=== PATIENT | male | born 1960 | race Caucasian/White ===

== ENCOUNTER 2016-08-19 02:44 | Inpatient (IN) | payer MEDICARE, OTHER ==
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
--- NOTE | ~2016-08-19 | DS ---
Discharge Summary [facility] [address] [facility] [place]. [address] NAME: NAMITA MI : 64 STATUS : ADM IN [facility]#: [id number] AGE: 55 ADM/REG DATE : 08/19/16 MR#: [id number] REPORT SERV DATE: 08/22/16 DICTATED BY: YEISON LUI DATE: 08/22/16 REPORT STATUS : Draft TRANSCRIBED BY: MODL DATE: 08/22/16 ADMISSION DATE: 08/19/2016 DISCHARGE DATE: 08/22/2016 FINAL HOSPITAL DIAGNOSES: 1. Chronic obstructive pulmonary disease. 2. Hypercapnic respiratory failure. 3. Narcotic dependence. 4. Possible seizure disorder. CONSULTATIONS: Pulmonary and Critical Care, Dr. Johnson. PROCEDURES: None. CURRENT PHYSICAL FINDINGS AND HISTORY OF PRESENT ILLNESS: Please see initial dictated H and P by Dr. Johnson. In brief, the patient is a 55-year-old male with above medical history, presented with encephalopathy, confusion, and hypercapnic respiratory failure. Partially responsive to Narcan, was placed in the ICU. Vital signs at time of admission, BP was 124/67, temperature was 98.8, he has been afebrile during his hospital stay. His average O2 requirements have been 4 L, which is his home baseline. LAB: Last blood gas was on 08/19/2016, pH 7.44, CO2 of 62, O2 of 102, bicarb 40, sat 97% on 60% FiO2. His CO2 had gotten as high as 92. Initial potassium was 3.4, this is corrected. He had a chronically elevated in the low 40 CO2. Renal function numbers were normal. Blood sugars were easily controlled with sliding scale despite his steroid use. Troponin was less than 0.02. Depakote level was 67. BNP was 1192. Initial ammonia level was 78, but repeat was 46. Lactate was 1.2. White count was 5.2. He has had no significant leukocytosis during his hospital stay. Urine drug screen was positive for opiates. Blood cultures are negative to this date. Chest x-ray done at the time of admission showed no infiltrate. Initial procalcitonin was 0.06 and repeated on the 08/20/2016, 0.08. HOSPITAL COURSE: Due to the patient's hypercarbia and obtundation and partial response to Narcan, it was felt best he initially presented to the ICU, which he did. He was started on IV fluids, nebulizer, steroids, antibiotics, and sliding scale insulin, electrolyte replacement protocol and BiPAP. On the 08/19/2016, he was given breaks off BiPAP and switched to p.r.n. h.s. and naps. He did also receive some IV fluids on 08/19/2016. Serial labs were followed on 08/20/2016. He was placed back on his Percocet 5 and orders for transfer to the Hospital Service. I assumed his care on 08/21/2016. His Tim was discontinued. He was requesting a muscle relaxer. His home medications were noted to contain multiple, but he was started on Flexeril. He was also continued on his Percocet and he was placed on Keppra as recommended by Neurology with his last hospitalization as it was felt the Depakote may be causing his elevated ammonia. When he was reassessed on 08/22/2016, he was ambulatory, he was back to his baseline O2 of 4 L. He was requesting to go home. Arrangements will be made for any home oxygen orders that he may need and follow up with his PCP. Discharge Summary [address] [address] NAME: NAMITA MI : 64 STATUS : ADM IN [facility]#: [id number] AGE: 55 ADM/REG DATE : 08/19/16 MR#: [id number] REPORT SERV DATE: 08/22/16 DICTATED BY: YEISON LUI DATE: 08/22/16 REPORT STATUS : Draft TRANSCRIBED BY: SAÚL DATE: 08/22/16 MEDICATIONS: New medications will be Levaquin 750 one per day and prednisone 20, 10 taper. He will resume his home medications Eliquis 5 b.i.d., aspirin 81, Coreg 12.5 b.i.d., Plavix 75, Neurontin 300 at bedtime, hydrochlorothiazide 25, lisinopril 2.5, Mevacor 40, Protonix 40, Flomax 0.4, trazodone 100, Symbicort 160/4.5 two puffs b.i.d., Ventolin inhaler, Ventolin nebulizer, Flexeril 10, DuoNeb, Silvadene, Glucophage 500 b.i.d., nitro 0.4, potassium. He is to follow up with his PCP and return p.r.n. recurrent symptoms. TLF/MODL Yeison Lui M.D. / [id number] CC: Yeison Lui M.D.
[2016-08-19 00:50] LABS: BE (BASE EXCESS) 12.2 MEQ/L (0 +/- 2.5); CARBOXYHEMOGLOBIN 7.3 % (0-3); DEVICE NC; HCO3 (ACTUAL BICARBONATE) 41.9 MEQ/L (23-27); HEMOBLOGIN CONTENT 12.6 G/DL (14-18); INSTRUMENT SERIAL # 8087; METHEMOGLOBIN 0.4 % (0-3); PCO2 (CO2 TENSION) 85 MMHG (35-45); PO2 (O2 TENSION) 94 MMHG (79-93); SAMPLE Arterial; pH 7.31 (7.37-7.43)
[2016-08-19 02:09] LABS: BASOPHILS 0.2 %; BASOPHILS ABSOLUTE 0.01 10/3/uL (0.0-0.16); EOSINOPHILS 2.5 %; EOSINOPHILS ABSOLUTE 0.13 10/3/uL (0.0-0.53); ER CBC TAT 0 Hrs 09 Mins; IMMATURE GRANULOCYTES 0.2 %; IMMATURE GRANULOCYTES ABSOLUTE 0.01 10/3/uL (0.0-0.11); LYMPHOCYTES 14.5 %; LYMPHOCYTES ABSOLUTE 0.75 10/3/uL (0.67-4.30); MEAN CORPUSCULAR HEMOGLOB 32.1 pg (26.0-34.0); MEAN CORPUSCULAR VOLUME 106.2 fL (80-100); MONOCYTES 3.9 %; NEUTROPHILS 78.7 %; NEUTROPHILS ABSOLUTE 4.08 10/3/uL (2.02-8.40); PLATELET COUNT 120 10/3/uL (150-400); RBC DISTRIBUTION WIDTH 16.2 % (12.0-16.0); WHITE BLOOD CELLS 5.2 10/3/uL (4.5-10.5)
[2016-08-19 02:10] LABS: HEMATOCRIT 39.4 % (40.0-51.0); HEMOGLOBIN 11.9 g/dL (13.6-17.8); MANUAL DIFF NO %; MEAN CORPUS HGB CONC 30.2 g/dL (32.0-36.0); RED CELL COUNT 3.71 10/6/uL (4.7-6.1)
[2016-08-19 02:16] LABS: INTERNATIONAL NORMAL RATI 1.8 UNITS (-); PARTIAL THROMBO TIME 38.3 SEC (22.5-37.2)
[2016-08-19 02:17] LABS: PROTIME (NOT ORD) 20.3 SEC (12.0-14.5)
[2016-08-19 02:34] LABS: ALBUMIN 2.9 G/DL (3.5-5.0); ALKALINE PHOSPHATASE 73 U/L (45-117); CALCIUM, SERUM 8.4 MG/DL (8.5-10.4); CHLORIDE, SERUM 96 MMOL/L (96-112); CO2 (CARBON DIOXIDE) 40 MMOL/L (24-34); GFR AFRICAN AMERICAN 125 ML/MIN (>=60); GFR NON AFRICAN AMERICAN 108 ML/MIN (>=60); GLUCOSE, SERUM 128 MG/DL (60-99); POTASSIUM, SERUM 3.4 MMOL/L (3.5-5.3); SGOT(AST) 12 U/L (5-40); SGPT(ALT) 13 U/L (5-65); SODIUM, SERUM 143 MMOL/L (135-148); TOTAL BILIRUBIN 0.7 MG/DL (0-1.2); TROPONIN I <0.02 NG/ML (<0.05)
[2016-08-19 02:36] LABS: BUN (BLOOD UREA NITROGEN) 14 MG/DL (6-23); DIRECT BILIRUBIN 0.3 MG/DL (0.0-0.4); INDIRECT BILIRUBIN(NOT ORDER) 0.4 MG/DL (0.1-0.9); TOTAL PROTEIN 7.8 G/DL (6.0-8.5)
[2016-08-19 02:37] LABS: CHEST PAIN PROFILE TAT 0 Hrs 31 Mins
[~2016-08-19 02:44] MED LIST: ACCUNEB INH; ADVAIR HFA INH; ADVAIR250 INH; ADVIL PO; ALBUTEROL; ASAB PO; ASABAYER PO; ASAEC PO; BACLOFEN20 MG PO; BACTROINT TOP; CAT1 PO; CLEOCIN300 MG PO; CONSTULOSE PO; COREG12 PO; DEP250 PO; DIVALPROEX 500 MG PO; DUONEB INH; ELIQUIS 5 MG TAB5 MG PO; FLOMAX4 PO; FORTAMET500 MG PO; GLUCOPHAGE1000 MG PO; GLUCPH PO; HALF81 PO; HYDROCHLOROT25 MG PO; HYDROCODONE; KLONO1 PO; KLOR-CON M1010 MEQ PO; L20 PO; LEVEMFLXPN SC; LEVEMIR SC; LISINOPRIL40 MG PO; LOP25 PO; LOP50 PO; LORTAB10 PO; MEVACOR40 MG PO; MICRO-K10 MEQ PO; NEUR300 PO; NICODERM C21 MG/241 TOP; NITROSTAT0.4 MG SL; NORCO1 TAB PO; NOVOLOG SC; NOVOPEN SC; NYS500UDL PO; OXYCOD PO; P20 PO; PB30 PO; PB60 PO; PERCOCET1 TA4 PO; PLAVIX PO; PRIN10 PO; PRIN2.5 PO; PROAIR HFA INH; PROTONIX PO; PROVENTSOL INH; PROVHFA INH; RISP1 PO; SYMBICORT 160/41 INH INH; TRAZ100 PO; VALPROIC ACID PO; VENTOLIN HFA INH; XANAX XR1 MG PO; XANAX1 MG PO; ZESTRIL2.5 MG PO; ZITHROMAX500 MG PO; ZOFRAN8 PO; ZOL100 PO; ZONEGRAN PO
[2016-08-19 03:12] LABS: DEPAKENE (VALPROIC ACID) 67.8 MCG/ML (50.0-100.0)
[2016-08-19 03:16] LABS: BE (BASE EXCESS) 16.3 MEQ/L (0 +/- 2.5); BIPAP 18/10 cm.H2O; CARBOXYHEMOGLOBIN 5.4 % (0-3); HCO3 (ACTUAL BICARBONATE) 46.7 MEQ/L (23-27); HEMOBLOGIN CONTENT 12.8 G/DL (14-18); INSTRUMENT SERIAL # 8087; METHEMOGLOBIN 0.4 % (0-3); O2 CONTENT 17.7 VOL% (18-24); PCO2 (CO2 TENSION) 92 MMHG (35-45); PO2 (O2 TENSION) 309 MMHG (79-93); SAMPLE Arterial; pH 7.33 (7.37-7.43)
[2016-08-19 03:32] LABS: LACTATE 1.2 MMOL/L (0.3-2.4)
[2016-08-19 04:41] LABS: PROCALCITONIN 0.06 ng/mL (<0.5)
[2016-08-19] MEDS ORDERED: UNABLE TO COMPLETE (04:42)
[2016-08-19 04:58] LABS: AMPHETAMINES (NOT ORD) NEG (NEG); BARBITURATES (NOT ORDERED NEG (NEG); BENZODIAZEPINES (NOT ORD) NEG (NEG); CANNABINOIDS (THC) NEG (NEG); COCAINE (NOT ORDERED) NEG (NEG); OPIATES POS (NEG); PHENCYCLIDINE(PCP) NEG (NEG); TRICYCLICS NEG (NEG)
[2016-08-19] MEDS ORDERED: PRIN2.5 PO (12:29)
[2016-08-19] MEDS ORDERED: VENTOLIN HFA INH (12:29)
[2016-08-19] MEDS ORDERED: COREG12 PO (12:30)
[2016-08-19] MEDS ORDERED: BACLOFEN20 MG PO (12:31)
[2016-08-19] MEDS ORDERED: ALBUTEROL0.083 % INH (12:31)
[2016-08-19] MEDS ORDERED: PR25 PO (12:32)
[2016-08-19] MEDS ORDERED: PLAVIX PO (12:33)
[2016-08-19] MEDS ORDERED: FLEX PO (12:33)
[2016-08-19] MEDS ORDERED: NEUR300 PO (12:34)
[2016-08-19] MEDS ORDERED: DUONEB INH (12:34)
[2016-08-19] MEDS ORDERED: SILVER SULFADIAZINE TOP (12:35)
[2016-08-19] MEDS ORDERED: GLUCPH PO (12:35)
[2016-08-19] MEDS ORDERED: NITROSTAT0.4 MG SL (12:36)
[2016-08-19] MEDS ORDERED: METHOC750B PO (12:36)
[2016-08-19] MEDS ORDERED: SYMBICORT 160/41 INH INH (12:37)
[2016-08-19] MEDS ORDERED: PROTONIX PO (12:37)
[2016-08-19] MEDS ORDERED: KLOR-CON 1010 MEQ PO (12:37)
[2016-08-19] MEDS ORDERED: FLOMAX4 PO (12:38)
[2016-08-19] MEDS ORDERED: TRAZ100 PO (12:38)
[2016-08-19] MEDS ORDERED: *UNABLE2 (12:40)
[2016-08-19 16:31] LABS: ALLENS TEST Pos; BE (BASE EXCESS) 14.3 MEQ/L (0 +/- 2.5); CARBOXYHEMOGLOBIN 1.7 % (0-3); DEVICE NC; HCO3 (ACTUAL BICARBONATE) 39.9 MEQ/L (23-27); HEMOBLOGIN CONTENT 12.1 G/DL (14-18); INSTRUMENT SERIAL # 35151; METHEMOGLOBIN 0.5 % (0-3); PCO2 (CO2 TENSION) 55 MMHG (35-45); PO2 (O2 TENSION) 84 MMHG (79-93); SAMPLE Arterial; pH 7.48 (7.37-7.43)
[2016-08-19 19:16] LABS: ALLENS TEST Pos; BE (BASE EXCESS) 14.1 MEQ/L (0 +/- 2.5); BIPAP 18/8 cm.H2O; HCO3 (ACTUAL BICARBONATE) 40.7 MEQ/L (23-27); HEMOBLOGIN CONTENT 11.4 G/DL (14-18); INSTRUMENT SERIAL # 35151; METHEMOGLOBIN 0.7 % (0-3); O2 CONTENT 15.5 VOL% (18-24); PCO2 (CO2 TENSION) 62 MMHG (35-45); PO2 (O2 TENSION) 101 MMHG (79-93); SAMPLE Arterial; pH 7.44 (7.37-7.43)
[2016-08-20 04:08] LABS: BASOPHILS 0 %; EOSINOPHILS 0 %; HEMATOCRIT 31.7 % (40.0-51.0); HEMOGLOBIN 9.9 g/dL (13.6-17.8); IMMATURE GRANULOCYTES 0.2 %; IMMATURE GRANULOCYTES ABSOLUTE 0.01 10/3/uL (0.0-0.11); LYMPHOCYTES 13.1 %; LYMPHOCYTES ABSOLUTE 0.79 10/3/uL (0.67-4.30); MANUAL DIFF NO %; MEAN CORPUS HGB CONC 31.2 g/dL (32.0-36.0); MEAN CORPUSCULAR HEMOGLOB 32.8 pg (26.0-34.0); MEAN PLATELET VOLUME 11.3 fL (9.2-13.0); MONOCYTES 11.6 %; NEUTROPHILS 75.1 %; NEUTROPHILS ABSOLUTE 4.54 10/3/uL (2.02-8.40); PLATELET COUNT 105 10/3/uL (150-400); RBC DISTRIBUTION WIDTH 16.5 % (12.0-16.0); RED CELL COUNT 3.02 10/6/uL (4.7-6.1)
[2016-08-20 04:30] LABS: CHLORIDE, SERUM 95 MMOL/L (96-112); CO2 (CARBON DIOXIDE) 40 MMOL/L (24-34); CREATININE 0.65 MG/DL (0.70-1.30); GFR AFRICAN AMERICAN 129 ML/MIN (>=60); GFR NON AFRICAN AMERICAN 111 ML/MIN (>=60); POTASSIUM, SERUM 3.3 MMOL/L (3.5-5.3); SODIUM, SERUM 141 MMOL/L (135-148)
[2016-08-20 04:33] LABS: BUN (BLOOD UREA NITROGEN) 20 MG/DL (6-23); GLUCOSE, SERUM 177 MG/DL (60-99)
[2016-08-20 06:31] LABS: PROCALCITONIN 0.08 ng/mL (<0.5)
[2016-08-20] MEDS ORDERED: ELIQUIS 5 MG TAB5 MG PO (13:05)
[2016-08-20] MEDS ORDERED: ASAB PO (13:06)
[2016-08-20] MEDS ORDERED: DEP250 PO (13:10)
[2016-08-20] MEDS ORDERED: MEVACOR40 MG PO (13:11)
[2016-08-20] MEDS ORDERED: HYDROCHLOROT25 MG PO (13:11)
[2016-08-20] MEDS ORDERED: LOP50 PO (13:11)
[2016-08-21 06:30] LABS: BASOPHILS 0 %; EOSINOPHILS 0 %; HEMATOCRIT 31.3 % (40.0-51.0); HEMOGLOBIN 10.2 g/dL (13.6-17.8); IMMATURE GRANULOCYTES 0.1 %; IMMATURE GRANULOCYTES ABSOLUTE 0.01 10/3/uL (0.0-0.11); LYMPHOCYTES 12.5 %; LYMPHOCYTES ABSOLUTE 0.85 10/3/uL (0.67-4.30); MEAN CORPUS HGB CONC 32.6 g/dL (32.0-36.0); MEAN PLATELET VOLUME 10.6 fL (9.2-13.0); MONOCYTES ABSOLUTE 0.54 10/3/uL (0.21-1.20); NEUTROPHILS 79.4 %; NEUTROPHILS ABSOLUTE 5.39 10/3/uL (2.02-8.40); PLATELET COUNT 110 10/3/uL (150-400); RBC DISTRIBUTION WIDTH 15.6 % (12.0-16.0); RED CELL COUNT 3.09 10/6/uL (4.7-6.1); WHITE BLOOD CELLS 6.8 10/3/uL (4.5-10.5)
[2016-08-21 06:33] LABS: MANUAL DIFF NO %; MEAN CORPUSCULAR VOLUME 101.3 fL (80-100)
[2016-08-21 06:39] LABS: CALCIUM, SERUM 8.3 MG/DL (8.5-10.4); CHLORIDE, SERUM 91 MMOL/L (96-112); GFR AFRICAN AMERICAN 133 ML/MIN (>=60); GFR NON AFRICAN AMERICAN 115 ML/MIN (>=60); GLUCOSE, SERUM 169 MG/DL (60-99); PHOSPHORUS, SERUM 2.6 MG/DL (2.5-4.5); POTASSIUM, SERUM 3.6 MMOL/L (3.5-5.3); SODIUM, SERUM 139 MMOL/L (135-148)
[2016-08-21 06:47] LABS: BUN (BLOOD UREA NITROGEN) 16 MG/DL (6-23); CO2 (CARBON DIOXIDE) 42 MMOL/L (24-34)
[2016-08-21] MEDS ORDERED: PCET PO (10:49)
[2016-08-22] MEDS ORDERED: KEPPRA500 PO (17:57)
[2016-08-22] MEDS ORDERED: LEVAQUIN750 MG PO (18:03)
[2016-08-22] MEDS ORDERED: STERAPRED DS10 MG (18:07)
== END 2016-08-22 18:40 | disposition home or self-care (01) | DRG 189 ==
LOC: ER 02:44 → CCU 03:38 → 4SO 08-20 13:39
PROVIDERS: Internal Medicine; Internal Medicine Pulmonary Disease; Specialist
PROC: 5A09457 Assistance with Respiratory Ventilation, 24-96 Consecutive Hours, Continuous Positive Airway Pressure (ICD-10-PCS; principal; 2016-08-19)
DX: J96.22 Acute and chronic respiratory failure with hypercapnia (principal); G92 Toxic encephalopathy; J18.9 Pneumonia, unspecified organism; Z99.81 Dependence on supplemental oxygen; J44.0 Chronic obstructive pulmonary disease with (acute) lower respiratory infection; J44.1 Chronic obstructive pulmonary disease with (acute) exacerbation; Z72.0 Tobacco use; Z79.891 Long term (current) use of opiate analgesic; I10 Essential (primary) hypertension; E11.9 Type 2 diabetes mellitus without complications; G40.909 Epilepsy, unspecified, not intractable, without status epilepticus; Z79.01 Long term (current) use of anticoagulants; Z79.82 Long term (current) use of aspirin; Z79.02 Long term (current) use of antithrombotics/antiplatelets; Z79.84 Long term (current) use of oral hypoglycemic drugs; Z79.51 Long term (current) use of inhaled steroids; I25.2 Old myocardial infarction; I25.10 Atherosclerotic heart disease of native coronary artery without angina pectoris; Z95.5 Presence of coronary angioplasty implant and graft; E78.00 Pure hypercholesterolemia, unspecified
CPT/HCPCS: 36600; 71010; 80048; 80076; 80164; 80305; 82140; 82805; 82962; 83605; 83735; 83880; 84100; 84145; 84443; 84484; 85025; 85610; 85730; 87040; 87641; 93005; 94640; 94660; 96365; 96375; 96376; 99285; A9270-GY; C9113; J0360; J0456; J0692; J2310; J2405; J2920; J3370